=== PATIENT | male | born 1940 | race Caucasian/White ===

== ENCOUNTER → 2021-05-23 | Outpatient (CLI) | payer OTHER, MEDICARE ==
[~2021-05-23] VITALS: Ht 180.3 cm; Wt 96.6 kg
[~2021-05-23] MED LIST: LEXAPRO20 MG PO; LOTENSIN10 MG PO; MULTI VITAMIN1 EACH PO; NORVASC5 MG PO; PRILOSEC OTC20 MG PO; PROAIR HFA8.5 GM INH; ZYLOPRIM300 MG PO
--- NOTE | ~2021-05-23 | P ---
[facility] [address] PROCEDURE REPORT Name: KENDELL ESTRADA Room #: [facility]#: [id number] Admission: 05/23/21 Attend Phys: Paresh Wills Discharge: Date of : 40 Report #: [id number] THIS REPORT FOR: cc: Ryan Leblanc MD,Ryan Osullivan,Paresh Stern MD ~ DOC #: [id number] cc: MD Paresh Page MD DATE OF SERVICE: 05/23/2021 PROCEDURE PERFORMED: Upper endoscopy with biopsies. HISTORY OF PRESENT ILLNESS: The patient is an 81-year-old male with a history of anemia. He denies any melena or bright red blood per rectum. He does have a history of gastroesophageal reflux disease and Adame's esophagus. Last biopsy showing Adame's and no dysplasia 3 years ago. He is taking Prilosec on a daily basis in general. He denies any dysphagia. Plan is for EGD and colonoscopy today. DESCRIPTION OF PROCEDURE: The risks and benefits of the procedure were explained to the patient, those risks including but not limited to bleeding, perforation and the risk of sedation. He understood these risks and gave informed consent. Sedation was given using propofol per anesthesia. Next, using a standard Olympus upper endoscope, the scope was placed in the patient's mouth and advanced under direct vision through the esophagus, stomach and into the second portion of the duodenum. The larynx was normal in appearance. The upper and mid esophagus were normal in appearance. In the distal esophagus, 2 small pink mucosal tongues were noted. Biopsies were obtained for history of Adame's. No evidence of esophagitis. Upon entering the stomach, a small hiatal hernia was noted. There was a mild gastritis noted in the body. No evidence of ulcerations or erosions. No evidence of bleeding. Biopsies were obtained to rule out H. pylori. The pylorus was normal and patent. The duodenal bulb, first and second portion were all normal. Random biopsies of the second portion were also obtained to rule out the possibility of celiac sprue due to history of anemia. The scope was then withdrawn and the procedure terminated. The patient tolerated the procedure well. IMPRESSION: 1. Short segment Adame's esophagus. 2. Hiatal hernia. 3. Mild gastritis. 4. Otherwise, normal upper endoscopy. RECOMMENDATIONS: [address] [address] PROCEDURE REPORT Name: KENDELL ESTRADA Room #: REG [facility] [place]#: [id number] Admission: 05/23/21 Attend Phys: Paresh Wills Discharge: Date of : 40 Report #: [id number] 1. Await biopsy results. 2. Continue PPI therapy. 3. We will proceed with colonoscopy next today. Thank you for allowing me to participate in his care. Paresh Osullivan MD CCM/DEANDRE By: 2 50 Paresh Osullivan MD /nt
--- NOTE | ~2021-05-23 | P ---
[facility] [place] [address] PROCEDURE REPORT Name: KENDELL ESTRADA Room #: REG [facility].#: [id number] Admission: 05/23/21 Attend Phys: Paresh Wills Discharge: Date of : 40 Report #: [id number] THIS REPORT FOR: cc: Ryan Leblanc MD,Ryan Osullivan,Paresh Stern MD ~ DOC #: [id number] cc: MD Paresh Page MD DATE OF SERVICE: 05/23/2021 PROCEDURE NOTE PROCEDURE PERFORMED: Colonoscopy with biopsies. HISTORY OF PRESENT ILLNESS: The patient is an 81-year-old male with a history of anemia. Denies any bright red blood per rectum or melena. Upper endoscopy was just performed. No stigmata of bleeding. Plan is for colonoscopy next today. DESCRIPTION OF PROCEDURE: The risks and benefits of the procedure were explained to the patient, those risks including but not limited to bleeding, perforation and the risk of sedation. He understood these risks and gave me informed consent. Sedation was given using propofol per anesthesia. Next, a digital rectal exam was initially performed, which was normal. Next, using a standard Olympus colonoscope, the scope was placed in the patient's anus and advanced under direct vision to the cecum. The overall prep was excellent. The cecum and ileocecal valve were normal in appearance. The ascending colon was normal. In the transverse colon, a 3 mm sessile polyp was noted. This was removed with cold forceps, otherwise normal. The descending and sigmoid colon were normal. The rectal mucosa was normal. On retroflexion, no abnormalities were noted. The scope was then withdrawn and the procedure terminated. The patient tolerated the procedure well. IMPRESSION: 1. Small colonic polyp. 2. Otherwise, normal colonoscopy. RECOMMENDATIONS: 1. Await biopsy results. 2. No stigmata of bleeding on EGD or colonoscopy today, await biopsy results. 3. I would recommend Hemoccult testing stools x3. If positive, then consider M2A capsule at that point. Thank you for allowing me to participate in his care. [address] [address] PROCEDURE REPORT Name: KENDELL ESTRADA Room #: [facility].#: [id number] Admission: 05/23/21 Attend Phys: Paresh Wills Discharge: Date of : 40 Report #: [id number] Paresh Osullivan MD CCM/PHILIP By: [id number] Paresh Osullivan MD /nt
--- NOTE | 2021-05-25 18:06 | PATH ---
[facility] [place] [address] PATHOLOGY RPT PROCEDURE Name: ESTRADAKENDELL BRIAN Room #: REG [facility].#: [id number] Admission: 05/23/21 Date of : 40 Discharge: Report #: [id number] Path Case #: [id number] [facility] Accession Number: [id number] . 01 Material submitted: . PART A: duodenum - DUODENAL BX-R/O SPRUE PART B: stomach - BX GASTRITIS-R/O H PYLORI PART C: esophagus - DISTAL ESOPHAGUS BX . Modifiers: distal PART D: colon - TRANSVERSE POLYP BX. Modifiers: transverse . 01 Clinical history: . A. R/O SPRUE B. R/O H PYLORI C. HX OF BARRETTS . 02 Diagnosis: A. Small bowel mucosa, duodenum rule out sprue, endoscopic biopsy: - No diagnostic abnormalities present. - Negative for villous blunting or increase in intraepithelial lymphocytes. . B. Gastric mucosa, gastritis, rule out H. pylori, endoscopic biopsy: - Mild chronic gastritis. - Negative for intestinal metaplasia or atrophy. - Negative for Helicobacter pylori (properly-controlled immunohistochemical stain performed). . C. 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 - Negative for dysplasia. - Squamous mucosa with mild esophagitis and features compatible with reflux esophagitis. . D. Polyp, transverse polyp, endoscopic biopsy: - Hyperplastic polyp. - Negative for dysplasia. . (IUV:mml; 05/25/2021) [facility] 05/25/2021 1422 Local . 02 Electronically signed: . Earnestine Millan MD, Pathologist NPI- [id number] . 01 Gross description: . [address] [place] [address] PATHOLOGY RPT PROCEDURE Name: KENDELL ESTRADA [facility] [id number] Admission: 05/23/21 Date of : 40 Discharge: Report #: [id number] Path Case #: [id number] A. The specimen is received in formalin, labeled "Kendell Estrada, duodenal biopsy". Received are five segments of pale martin tissue ranging in size from 0.3-0.5 cm in maximum dimensions. The specimen is submitted entirely in cassette A1. . B. The specimen is received in formalin, labeled "Kendell Estrada, biopsy gastritis". Received are three segments of pale martin tissue ranging in size from 0.3-0.6 cm in maximum dimensions. The specimen is submitted entirely in cassette B1. . C. The specimen is received in formalin, labeled "Kendell Estrada, distal esophagus biopsy". Received are two segments of pale martin tissue measuring 0.3 and 0.4 cm in maximum dimensions. The specimen is submitted entirely in cassette C1. . D. The specimen is received in formalin, labeled "Kendell Estrada, transverse colon polyp biopsy". Received are two segments of pale martin tissue measuring 0.2 and 0.3 cm in maximum dimensions. The specimen is submitted entirely in cassette D1. (CAA; 05/24/2021) QAC/QAC 05/24/2021 1927 Local . 02 Pathologist provided ICD-10: K29.50, K22.70, K20.90, K63.5 . 02 CPT . 096639, 127096, 393992, [id number], [id number] Specimen Comment: A courtesy copy of this report has been sent to [phone], [phone] Specimen Comment: [phone] Specimen Comment: Report sent to / DR FLOWERS Performed at: [address], [place], [place] [id number] MD Bill Casarez MD Phone: [phone] Performed at: [address] [id number] MD Earnestine Millan MD Phone: [phone]
== END | disposition home or self-care (01) ==
LOC: GI 07:31
PROVIDERS: ATTEND Specialist
DX: D64.9 Anemia, unspecified (principal); K63.5 Polyp of colon; K29.50 Unspecified chronic gastritis without bleeding; K22.70 Barrett's esophagus without dysplasia; K44.9 Diaphragmatic hernia without obstruction or gangrene; K21.00 Gastro-esophageal reflux disease with esophagitis, without bleeding; I10 Essential (primary) hypertension; Z79.899 Other long term (current) drug therapy
CPT/HCPCS: 62110; 62900